=== PATIENT | female | born 1960 | race Caucasian/White ===

== ENCOUNTER → 2018-02-16 | Outpatient (CLI) | payer OTHER ==
[~2018-02-16] MED LIST: ADVAIR 500-501 EACH IH; ALLEGRA180 MG PO; AMBIEN 10 MG TA10 MG PO; BACLOFEN 10MG T10 MG PO; CLONAZEPAM 1 MG1 M1 NG; COPAXONE20 M1 IM; IMITREX100 MG PO; LEXAPRO20 MG PO; NORFLEX100 MG PO; PROVENTIL IH; SIMVASTATIN40 MG PO; SYNTHROID100 MCG PO
== END ==
LOC: M.RAD 13:30
DX: M85.89 Other specified disorders of bone density and structure, multiple sites (principal); Z78.0 Asymptomatic menopausal state; Z79.899 Other long term (current) drug therapy

== ENCOUNTER → 2018-05-14 | Outpatient (CLI) | payer OTHER | LOC: M.RAD 16:29 | DX: M19.041 Primary osteoarthritis, right hand (principal); J45.909 Unspecified asthma, uncomplicated ==

== ENCOUNTER → 2020-04-10 | Outpatient (CLI) | payer OTHER | LOC: M.CT 08:50 | PROVIDERS: ATTEND Registered Nurse Diabetes Educator | DX: Z13.6 Encounter for screening for cardiovascular disorders (principal) ==

== ENCOUNTER → 2020-05-08 | Outpatient (CLI) | payer OTHER ==
--- NOTE | 2020-05-08 16:57 | CARDNUC ---
[place] [address] CARDIAC NUCLEAR IMAGING REPORT Name: DORIS MIR Room: [facility]#: [id number] Admission: 05/08/20 Attend Phys: JORJE Fregoso Discharge: Date of : 56 Date of Service: 05/08/20 1657 Report #: [id number] THIS REPORT FOR: cc: Joana Zhao Tammy RNP Liston, Michael J. MD [facility] ~ APPROVED REPORT Study performed: 05/08/2020 09:44:59 Exam: Nuclear Stress Test Indication: Chest pain, Dyspnea, Diaphoresis, lightheadedness. Patient Location: Out-Patient Stress Tech: Iliana Stout Stress Nurse: Sherice Bauer Tech:ULISSES Helm Ht: 5 ft 5 in Wt: 178 lbs BSA: 1.88 m2 BMI: 29.61 Medical History Medical History: MS, , Angina, Diabetic Noninsulin, Hyperlipidemia, SOB, Weakness, Diaphoresis, Asthma, Vertigo, Lightheadedness. Medications: Atorvastatin, ASA 81 Mg, Metformin. Allergies: Codeine, Fentanyl, Hydrocodone, Tramadol, Sulfa, Gemfibrozil, Oxycodone, Propoxyphene, Darvocet. Cardiac Risk Factors: Age, Diabetes (non-insulin), FHX of CAD, Hyperlipidemia, SOB. Previous Cardiac Procedures: None Pretest Chest Pain Characteristics: No chest pain Exercise History: Sedentary Physical Disabilities: MS, Vertigo. Meds Held (24 hrs): None Stress Test Details Stress Test: Pharmacologic stress testing performed using 0.4 mg of regadenoson per 5 mL given IV over 10 seconds. Reason for pharmacologic stress test: MS, Vertigo.. HR Resting HR: 74 bpm Max Heart Rate (APMHR): 158 bpm Max HR Achieved: 96 bpm Target HR (85% APMHR): 134 [place] [address] CARDIAC NUCLEAR IMAGING REPORT Name: DORIS MIR Room: [facility]#: [id number] Admission: 05/08/20 Attend Phys: JORJE Fregoso Discharge: Date of : 56 Date of Service: 05/08/20 1657 Report #: [id number] % of APMHR: 60 Recovery HR: 89 bpm BP Resting BP: 126/75 mmHg Max BP: 128/67 mmHg ECG Resting ECG: Sinus Rhythm Stress ECG: Sinus Rhythm ST Change: None Arrhythmia: None Recovery ECG: Sinus Rhythm Recovery ST Change: None Recovery Arrhythmia: None Clinical Reason for Termination: Completed protocol Stress Symptoms: Stomach discomfort, Lightheadedness, Vertigo. Exercise duration: 00 min 00 sec Exercise capacity: 1.00 METs The patient tolerated Lexiscan infusion without significant cardiac symptoms. Nurse Comments A 60 year old female presented with MS/Wheelchair/Cane for a sitting Lexiscan r/t chest pain, diaphoresis, dyspnea, and lightheadedness. Test well tolerated. Recovery unremarkable. Patient was escorted by staff via wheelchair to [facility] for imaging. Patient was stable and stated she felt good at that time. Stress ECG Conclusion The baseline twelve-lead EKG shows sinus rhythm without significant ST segment abnormality. EKGs obtained during and post Lexiscan infusion show sinus rhythm with no significant ST segment changes when compared to baseline. There were no stress-induced arrhythmias. NM EXAM: Myocardial Perfusion REST/STRESS Imaging Protocol: Rest Tc-99m/Stress Tc-99m 1 day Resting Data Rest SPECT myocardial perfusion imaging was performed in supine position 30 minutes following the intravenous injection of 10.3 mCi of Tc-99[place] [address] CARDIAC NUCLEAR IMAGING REPORT Name: ADEOLADORIS WASSERMAN Room: [facility]#: [id number] Admission: 05/08/20 Attend Phys: JORJE Fregoso Discharge: Date of : 56 Date of Service: 05/08/20 1657 Report #: [id number] Time of rest injection: 0800 Date: 05/08/2020 The images were gated to evaluate regional wall motion and calculate left ventricular ejection fraction. Administration Route: IV Administration Site: Left AC Pharmacologic Stress Pharmacologic stress test was performed by injecting Regadenoson 0.4 mg IV push followed by the intravenous injection of 31.7 mCi of Tc-99m Sestamibi. Time of stress injection: 929 Date: 05/08/2020 Administration Route: IV Administration Site: Left AC Gated Stress SPECT was performed 40 minutes after stress injection. The images were gated to evaluate regional wall motion and calculate left ventricular ejection fraction. Prone imaging was performed. Study Quality Study: Good Artifact: No artifact Study Data At rest, the left ventricular ejection fraction was 77%.. Post stress, the left ventricular ejection was 72%.. TID = 1.11. Perfusion Perfusion images obtained at rest and post Lexiscan stress show uniform uptake of the radioisotope throughout the myocardium. Wall Motion Normal left ventricular wall motion. Nuclear Conclusion ECG Findings: negative for ischemia Clinical Findings: negative for ischemia Nuclear Findings: negative for ischemia Exercise Capacity: not assessed Left Ventricular Function: normal Risk Study: low Perfusion study showed no defect to suggest infarct or ischemia. Left ventricular systolic function appears normal on gated studies. This is [place] [address] CARDIAC NUCLEAR IMAGING REPORT Name: DORIS MIR Room: [facility]#: [id number] Admission: 05/08/20 Attend Phys: JORJE Fregoso Discharge: Date of : 56 Date of Service: 05/08/20 1657 Report #: [id number] <Conclusion> The baseline twelve-lead EKG shows sinus rhythm without significant ST segment abnormality. EKGs obtained during and post Lexiscan infusion show sinus rhythm with no significant ST segment changes when compared to baseline. There were no stress-induced arrhythmias. <ELECTRONICALLY SIGNED> By: Rainer Baig MD, FACC 05/08/201656 56 56 Rainer Baig MD, FACC /INF
--- NOTE | 2020-05-08 17:19 | 2DMMODE ---
[place] [address] 2 D/M-MODE ECHOCARDIOGRAM Name: ADEOLADORIS WASSERMAN Room: [facility]#: [id number] Admission: 05/08/20 Attend Phys: JORJE Fregoso Discharge: Date of : 56 Date of Service: 05/08/20 1718 Report #: [id number] THIS REPORT FOR: cc: Joana Zhao Tammy RNP Holkins, John M. MD [facility] ~ APPROVED REPORT Study performed: 05/08/2020 10:30:34 EXAM: Comprehensive 2D, Doppler, and color-flow Echocardiogram Patient Location: Out-Patient BSA: 1.88 HR: 76 bpm BP: 126/80 mmHg Other Information Study Quality: Good Indications Chest Pain 2D Dimensions IVSd: 10.02 (7-11mm) LVOT Diam: 20.89 (18-24mm) LVDd: 39.02 mm PWd: 9.78 (7-11mm) Ascending Ao: 30.10 (22-36mm) LVDs: 22.93 (25-40mm) Aortic Root: 31.74 mm Volumes Left Atrial Volume (Systole) LA ESV Index: 14.70 mL/m2 Aortic Valve AoV Peak Timur.: 1.11 m/s AO Peak Gr.: 4.95 mmHg LVOT Max P.87 mmHg AO Mean Gr.: 2.52 mmHg LVOT Mean P.53 mmHg LVOT Max V: 0.85 m/s AO V2 VTI: 22.16 cm LVOT Mean V: 0.57 m/s JADA (VTI): 3.00 cm2 LVOT V1 VTI: 19.38 cm Mitral Valve E/A Ratio: 1.11 [place] [address] 2 D/M-MODE ECHOCARDIOGRAM Name: DORIS MIR Room: [facility]#: [id number] Admission: 05/08/20 Attend Phys: JORJE Fregoso Discharge: Date of : 56 Date of Service: 05/08/20 1718 Report #: [id number] MV Decel. Time: 134.68 ms MV E Max Timur.: 0.59 m/s MV PHT: 39.06 ms MVA (PHT): 5.63 cm2 TDI E/Lateral E': 5.36 E/Medial E': 5.90 Medial E' Timur.: 0.10 m/s Lateral E' Timur.: 0.11 m/s Pulmonary Valve PV Peak Timur.: 0.79 m/s PV Peak Gr.: 2.51 mmHg Left Ventricle The left ventricle is normal size. There is normal LV segmental wall motion. There is normal left ventricular wall thickness. Left ventricular systolic function is normal. The left ventricular ejection fraction is within the normal range. LVEF is 60-65%. Grade I - abnormal relaxation pattern. Right Ventricle The right ventricle is normal size. The right ventricular systolic function is normal. Atria The left atrium size is normal. The right atrium size is normal. Aortic Valve The aortic valve is normal in structure. No aortic regurgitation is present. There is no aortic valvular stenosis. Mitral Valve The mitral valve is normal in structure. Trace mitral regurgitation. No evidence of mitral valve stenosis. Tricuspid Valve The tricuspid valve is normal in structure. There is no tricuspid valve regurgitation noted. Pulmonic Valve The pulmonary valve is normal in structure. There is no pulmonic valvular regurgitation. Great Vessels The aortic root is normal in size. IVC [place] [address] 2 D/M-MODE ECHOCARDIOGRAM Name: DORIS MIR Room: [facility]#: [id number] Admission: 05/08/20 Attend Phys: JORJE Fregoso Discharge: Date of : 56 Date of Service: 05/08/20 1718 Report #: [id number] collapses >50% with inspiration. Pericardium There is no pericardial effusion. <Conclusion> The left ventricle is normal size. There is normal left ventricular wall thickness. Left ventricular systolic function is normal. The left ventricular ejection fraction is within the normal range. LVEF is 60-65%. The right ventricle is normal size. The left atrium size is normal. The aortic valve is normal in structure. The mitral valve is normal in structure. IVC is normal in size and collapses >50% with inspiration. There is no pericardial effusion. There is normal LV segmental wall motion. <ELECTRONICALLY SIGNED> By: Drake See MD, [facility] 05/08/201717 17 17 Drake See MD, FACC /INF
== END ==
LOC: M.CRD 05-04 13:40 → M.NUC 07:40 → M.CRD 11:00
PROVIDERS: ATTEND Registered Nurse Diabetes Educator
DX: R07.9 Chest pain, unspecified (principal)

== ENCOUNTER 2021-05-26 14:37 | Emergency (ER) | payer OTHER ==
[~2021-05-26] VITALS: Ht 165.1 cm; Wt 66.7 kg
[2021-05-26 17:34] VITALS: BP 116/70
== END 2021-05-26 17:40 | disposition home or self-care (01) ==
LOC: M.ERS 14:37
DX: M25.531 Pain in right wrist (principal); R20.0 Anesthesia of skin; M79.631 Pain in right forearm; M25.551 Pain in right hip; J45.909 Unspecified asthma, uncomplicated; Z79.899 Other long term (current) drug therapy; Z88.6 Allergy status to analgesic agent; Z88.2 Allergy status to sulfonamides; Z88.8 Allergy status to other drugs, medicaments and biological substances